=== PATIENT | male | born 2005 | race Caucasian/White ===

== ENCOUNTER 2025-09-02 02:01 | Emergency (ER) | payer MEDICAID ==
[~2025-09-02] VITALS: Ht 165.1 cm; Wt 52.3 kg
[2025-09-02 02:09] VITALS: TEMP 98.4
[2025-09-02 02:23] LABS: COVID AG,FIA SOURCE NASAL SWAB
[2025-09-02 02:38] LABS: SARS-COV2 (COVID) ANTIGEN,FIA Negative (Negative)
[2025-09-02 02:43] LABS: INFLUENZA TYPE A NEGATIVE FOR TYPE A (NEGATIVE); INFLUENZA TYPE B NEGATIVE FOR TYPE B (NEGATIVE)
[2025-09-02] MEDS: IPRATROPIUM BROMIDE 0.5 MG/2.5 ML NEB SOLUTION NEB ONE (02:43)
[2025-09-02] MEDS: ALBUTEROL SULFATE 2.5 MG/0.5 ML NEB SOLUTION NEB ONE (02:44)
[2025-09-02 02:47] VITALS: PULSE 100; PULSE 65; RESP 20; O2SAT 89; O2SAT 98
[2025-09-02] MEDS ORDERED: ALBU18HF12 IH (02:48)
[2025-09-02] MEDS ORDERED: AZIT250T9 PO (02:48)
[2025-09-02 03:42] VITALS: BP 113/63; PULSE 92; RESP 20; O2SAT 98
== END 2025-09-02 03:51 | disposition home or self-care (01) ==
LOC: EMS 02:04
DX: J45.909 Unspecified asthma, uncomplicated (principal); J18.9 Pneumonia, unspecified organism; F12.90 Cannabis use, unspecified, uncomplicated; Z87.09 Personal history of other diseases of the respiratory system; Z91.09 Other allergy status, other than to drugs and biological substances; Z20.822 Contact with and (suspected) exposure to COVID-19
CPT/HCPCS: 71045; 87804; 93005; 94060; 94640; 99285; J7613